=== PATIENT | male | born 1980 | race Caucasian/White ===

== ENCOUNTER 2022-04-25 15:17 | Emergency (ER) | payer BC ==
[2022-04-25 15:23] VITALS: BP 114/70
[2022-04-25] MEDS ORDERED: MELOXICAM10 MG (15:25)
[2022-04-25] MEDS ORDERED: TRAMADOL 50 MG TAB PO (15:26)
[2022-04-25 16:01] LABS: BASO # 0.05 K/mm3 (0.02-0.10); EOS # 0.61 K/mm3 (0.04-0.40); EOS % 6.4 % (0.0-4.0); HEMATOCRIT 44.6 % (42.0-52.0); HEMOGLOBIN 15.8 g/dL (13.5-18.0); LYMPH# 1.61 K/mm3 (1.50-4.00); MEAN CELL VOLUME 84 fl (78-100); MEAN CORPUSCULAR HEMOGLOBIN 30 pg (27-31); MEAN CORPUSCULAR HGB CONC 35 g/dL (33-37); MEAN PLATELET VOLUME 10.2 fl (7.4-10.4); MONO # 0.63 K/mm3 (0.20-0.80); NEU # 6.59 K/mm3 (1.40-6.50); PLATELET COUNT 203 K/mm3 (130-400); RED BLOOD COUNT 5.34 M/mm3 (4.20-5.60); RED CELL DISTRIBUTION WIDTH 11.7 % (11.5-14.5); WHITE BLOOD COUNT 9.5 K/mm3 (4.8-10.8)
[2022-04-25 16:09] LABS: ALBUMIN 4.1 g/dL (3.5-5.0)
[2022-04-25 16:11] LABS: CALCIUM 9.1 mg/dL (8.3-10.5)
[2022-04-25 16:12] LABS: TOTAL PROTEIN 6.6 g/dL (6.4-8.3)
[2022-04-25 16:14] LABS: TOTAL BILIRUBIN 0.5 mg/dL (0.2-1.2)
[2022-04-25 18:15] LABS: URINE WBC 0 /hpf (0-3)
[2022-04-25 18:30] LABS: URINE APPEARANCE CLEAR; URINE BILIRUBIN NEGATIVE (NEGATIVE); URINE BLOOD NEGATIVE (NEGATIVE); URINE COLOR YELLOW; URINE GLUCOSE NEGATIVE (NEGATIVE); URINE KETONE NEGATIVE (NEGATIVE); URINE LEUKOCYTE ESTERASE NEGATIVE (NEGATIVE); URINE MUCUS PRESENT (NOT PRESENT); URINE NITRATE NEGATIVE (NEGATIVE); URINE PROTEIN(semi-quant) TRACE (NEGATIVE); URINE UROBILINOGEN NORMAL (NORMAL)
[2022-04-25] MEDS ORDERED: NORCO 10-325 T1 EACH PO (18:41)
[2022-04-25] MEDS ORDERED: VALIUM 2MG T2 MG/TAB PO (18:41)
[2022-04-25] MEDS ORDERED: MEDROL DOSEPAK4 MG PO (18:41)
== END 2022-04-25 19:04 | disposition home or self-care (01) ==
LOC: ED 15:17
PROVIDERS: Nurse Practitioner
DX: M62.830 Muscle spasm of back (principal); Z28.310 Unvaccinated for COVID-19
CPT/HCPCS: J1885; J2270; J2360